=== PATIENT | male | born 1985 | race Caucasian/White ===

== ENCOUNTER 2017-09-26 22:14 | Emergency (ER) | payer SELFPAY ==
[~2017-09-26] VITALS: Ht 154.9 cm; Wt 68.0 kg
== END 2017-09-26 22:41 | disposition home or self-care (01) ==
LOC: ER 22:14
DX: F11.10 Opioid abuse, uncomplicated (principal); F19.10 Other psychoactive substance abuse, uncomplicated; F17.210 Nicotine dependence, cigarettes, uncomplicated
CPT/HCPCS: 99282

== ENCOUNTER 2019-10-24 22:10 | Emergency (ER) | payer SELFPAY ==
[~2019-10-24] VITALS: Ht 154.9 cm; Wt 68.0 kg
--- OUTSIDE RECORDS SUMMARY | 2019-10-24 22:13 | XMS REPORT | Continuity of Care Document ---
Author Author [facility] t Organization [facility] Address [address] [place] [address] Phone Unavailable Care Team Providers Care International Sales Manager Name Role Phone NO, PCP PCP Unavailable SWEET, A LAIRD Attphys Unavailable Payers Payer Name Policy Type Policy Number Effective Date Expiration Date S ource Problems This patient has no known problems. Allergies, Adverse Reactions, Alerts Allergy Name Allergy Type Status Severity Reaction(s) Onset Date Inacti ve Date Treating Clinician Comments Source No Known Allergies DA Active U 2015-10-12 00:00:[address] [facility] Social History Social Habit Start Date Stop Date Quantity Comments Source History of tobacco use Cigarette Smoker Willam Gruber Sex Assigned At Har[facility] balbuena Scientologist Cigarettes smoked current (pack per day) - Reported 00:00:00 2018-03-24 00:00:00 Willam Gruber Alcohol intake 2018-03-24 00:00:00 2018-03-24 00:00:00 Current non-drinker of alcohol (finding) Willam Gruber Smoking Status Start Date Stop Date Source Heavy tobacco smoker 2018-03-24 00:00:00 Willam Gruber Medications Ordered Medication Name Filled Medication Name Start Date Stop Da te Current Medication? Ordering Clinician Indication Dosage Frequency Signature (SIG) Comments Components Source meloxicam (MOBIC) 15 mg tablet 2018-03-24 00:00:00 Yes 15mg Q24H Take 1 tablet (15 mg total) by mouth daily as needed for mild pain or moderate pain for up to 10 doses. Willam Gruber Procedures This patient has no known procedures. Plan of Care Planned Activity Planned Date Details Comments Source Future Scheduled Test 2019-12-13 00:00:00 INFLUENZA VACCINE [code = INFLUENZA VACCINE] Willam Scientologist Encounters Start Date/Time End Date/Time Encounter Type Admission Type Attendi [facility] Facility Care Department Encounter ID Source 2019-05-11 12:21:00 2019-05-11 15:26:00 Departed Emergency Room 1 ANDREA RIVERO [facility] [id number] [facility] 2017-09-26 22:14:00 2017-09-26 22:41:00 Departed Emergency Room [facility] [id number] [facility] Results Test Description Test Time Test Comments Results Result Comments Source URINALYSIS COMPLETE 2019-07-15 18:26:00 Test Item UA COLOR (test code = COLU) DARK YELLOW YELLOW A UA APPEARANCE (test code = APPU) CLEAR CLEAR UA GLUCOSE DIPSTICK (test code = DGLUU) norm mg/dL NEGATIVE UA BILIRUBIN DIPSTICK (test code = BILU) NEGATIVE mg/dL NEGATIVE UA KETONE DIPSTICK (test code = KETU) neg mg/dL NEGATIVE UA SPECIFIC GRAVITY (test code = SGU) 1.025 1.001-1.035 UA BLOOD DIPSTICK (test code = ANGELA) neg Shawn/uL NEGATIVE UA PH DIPSTICK (test code = NELI) 5.0 5.0-8.0 UA PROTEIN DIPSTICK (test code = PROU) neg mg/dL Neg-15 UA UROBILINIOGEN DIPSTICK (test code = URO) norm mg/dL 0.0-0.2 UA NITRITE DIPSTICK (test code = ABBY) NEGATIVE NEGATIVE UA LEUKOCYTE ESTERASE DIPSTICK (test code = LEUU) neg uL NEGA TIVE UA WBC (test code = WBCU) 0-5 per HPF 0-5 UA RBC (test code = RBCU) NONE SEEN per HPF 0-5 UA EPITHELIAL CELLS (test code = EPIU) Few (2-5/hpf) per HPF Few UA BACTERIA (test code = BACU) TRACE per HPF NONE UA HYALINE CAST (test code = HYALU) 2-5 per LPF 0-2 A UA MUCUS (test code = MUCU) MODERATE per LPF NONE-FEW A Urine Source? Clean CatchDRUGS OF ABUSE SCREEN [id number] 18:26:00* Test Item Value Reference Range Interpretation Comments URN COCAINE (test code = COCAURN) NEGATIVE NEGATIVE URN CANNABINOIDS (test code = CANNABURN) NEGATIVE NEGATIVE URN AMPHETAMINE (test code = AMPHETURN) POSITIVE NEGATIVE A URN BARBITURATE (test code = BARBITURN) NEGATIVE NEGATIVE URN BENZODIAZEPINE (test code = BENZOURN) POSITIVE NEGATIVE A URN OPIATES (test code = OPIATURN) POSITIVE NEGATIVE A URN PHENCYCLIDINE (PCP) (test code = PHENCURN) NEGATIVE NEGATIV E URINALYSIS [id number] 18:18:00* Test Item Value Reference Range Interpretation Comments UA COLOR (test code = COLU) DARK YELLOW YELLOW A UA APPEARANCE (test code = APPU) CLEAR CLEAR UA GLUCOSE DIPSTICK (test code = DGLUU) norm mg/dL NEGATIVE UA BILIRUBIN DIPSTICK (test code = BILU) NEGATIVE mg/dL NEGATIVE UA KETONE DIPSTICK (test code = KETU) neg mg/dL NEGATIVE UA SPECIFIC GRAVITY (test code = SGU) 1.025 1.001-1.035 UA BLOOD DIPSTICK (test code = ANGELA) neg Shawn/uL NEGATIVE UA PH DIPSTICK (test code = NELI) 5.0 5.0-8.0 UA PROTEIN DIPSTICK (test code = PROU) neg mg/dL Neg-15 UA UROBILINIOGEN DIPSTICK (test code = URO) norm mg/dL 0.0-0.2 UA NITRITE DIPSTICK (test code = ABBY) NEGATIVE NEGATIVE UA LEUKOCYTE ESTERASE DIPSTICK (test code = LEUU) neg uL NEGA TIVE UA WBC (test code = WBCU) per HPF 0-5 UA RBC (test code = RBCU) per HPF 0-5 UA EPITHELIAL CELLS (test code = EPIU) per HPF Few UA BACTERIA (test code = BACU) per HPF NONE Urine Source? Clean Catch- XR CHEST 1 [id number] 17:44:00 Name: DEZNGUYỄN WHITEHAN [facility] : 1985 Age/S:34 /M [address] [facility] Unit#:[id number] Loc: [place] [address] Phys: Gerber Borges MD Dis Date: PHONE #: [phone] Status: REG ER FAX #: [phone] Exam Date: 07/15/2019 Reason: overdose EXAMS: CPT CODE: [id number] XR CHEST 1 V 93184 HISTORY: Overdose. COMPARISON: October 12, 2015. Location: [facility]. No acute infiltrates, effusion or congestion is noted. Hyperinflation. The cardiac and mediastinal silhouette are within normal limits. IMPRESSION: No acute infiltrates, effusion or congestion. at 1744 Reported and signed by: Omero Sesay M.D. CC: Gerber Borges MD Technologist: Tae Orozco RT(R) Trnscrpt Data: 07/15/2019 (820) t.SDR.TH4 Orig Print D/T: S: 07/15/2019 (0003) PAGE 1 Signed Report - CT HEAD/BRAIN W/O [id number] 17:37:00 Name: NGUYỄN GARCES [facility] : 1985 Age/S: 34 / M [address] [facility] Unit #: [id number] Loc: [place] [address] Phys: Gerber Borges MD Acct: [id number] Dis Date: Status: REG ER PHONE #: [phone] Exam Date: 07/15/2019 1709 FAX #: [phone] Reason: overdose EXAMS: CPT CODE: [id number] CT HEAD/BRAIN W/O CONT 13150 HISTORY: Overdose. COMPARISON: None available. Location: [facility]. CT brain contrast: Automated exposure control. No acute intracranial bleeds or extra- axial collections and there is no acute territorial vascular infarction. The reilly-white matter differentiation is preserved. The sulci, gyri, ventricles and subarachnoid spaces and the basilar cisterns are normal for patient's age. No herniation or hydrocephalus or midline shift is noted. Fourth ventricle remains midline. 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 No obvious bony calvarial defect is noted. IMPRESSION: No acute intracranial bleeds or extra-axial collections. No acute territorial vascular infarction. No herniation or hydrocephalus or midline shift. at 1737 Reported and signed by: Omero Sesay M.D. CC: Gerber Borges MD Technologist:Tae Orozco RT(R) CTDI: DLP: Trnscb Date/Time: 07/15/2019 (1737) t.SDR.TH4 Orig Print D/T: S: 07/15/2019 (6367) PAGE 1 Signed Report BASIC METABOLIC PANEL 2019-07-15 17:27:00* Test Item Value Reference Range Interpretation Comments SODIUM (test code = NA) 143 mmol/L 136-145 N POTASSIUM (test code = K) 4.1 mmol/L 3.5-5.1 N CHLORIDE (test code = CL) 106 mmol/L 101-109 N CARBON DIOXIDE (test code = CO2) 31.6 mmol/L 21-32 N ANION GAP (test code = GAP) 10 mmol/L 10-20 N GLUCOSE (test code = GLU) 97 mg/dL 74-106 N BLOOD UREA NITROGEN (test code = BUN) 19 mg/dL 3-21 N GLOMERULAR FILTRATION RATE (test code = GFR) > 60 mL/min >=60 Estimated GFR by using Modified MDRD formula.Chronic kidney disease is defined as either kidney damageor GFR <60 mL/min/1.73 m2 for >3 months. CREATININE (test code = CREAT) 1.05 mg/dL 0.55-1.3 N BUN/CREATININE RATIO (test code = BUN/CREA) 18.1 10-20 N CALCIUM (test code = CA) 8.9 mg/dL 8.4-10.2 N HEPATIC FUNCTION [id number] 17:27:00* Test Item Value Reference Range Interpretation Comments TOTAL PROTEIN (test code = PROT) 7.2 g/dL 6.5-8.4 N ALBUMIN (test code = ALB) 3.6 g/dL 3.4-4.8 N GLOBULIN (test code = GLOB) 3.6 G/DL 1-10 N ALBUMIN/GLOBULIN RATIO (test code = A/G) 1.00 RATIO 0.75-1.50 N BILIRUBIN TOTAL (test code = BILT) 1.00 mg/dL 0.0-1.0 N BILIRUBIN DIRECT (test code = BILD) 0.20 mg/dL 0.0-0.30 N SGOT/AST (test code = AST) 26 U/L 6-32 N SGPT/ALT (test code = ALT) 28 U/L 12-78 N N ote: Change in REFERENCE RANGE due to new reagent method. ALKALINE PHOSPHATASE TOTAL (test code = ALKP) 64 U/L 38-126 N CREATINE KINASE (CK)2019-07-15 17:27:00* Test Item Value Reference Range Interpretation Comments CREATINE KINASE (CK) (test code = CK) 424 U/L 39-308 H [id number] 17:27:00* Test Item Value Reference Range Interpretation Comments MAGNESIUM (test code = MAG) 2.1 mg/dL 1.6-2.3 N [id number] 17:27:00* Test Item Value Reference Range Interpretation Comments ACETAMINOPHEN (test code = ACET) < 10 mcg/mL 10-30 L A RANGE OF 10-30 mcg/mL IS A THERAPEUTIC RANGE. TOXIC CONCENTRATIONS: >150 mcg/mL AT 4 HOURS AFTER INGESTION >= 50 mcg/mL AT 12 HOURS AFTER INGESTION [id number] 17:27:00* Test Item Value Reference Range Interpretation Comments SALICYLATE (test code = JENNY) 0.5 mg/dL 2.8-20.0 L [id number] 17:27:00* Test Item Value Reference Range Interpretation Comments ALCOHOL (test code = ALC) 3 mg/dL 0.0-3.0 N -- INTERPRETIVE DATA NOTE: POSITIVE SCREENING RESULTS SHOULD BE CONSIDERED PRESUMPTIVE.WHEN COLLECTED FOR MEDICAL PURPOSES ONLY. SPECIMEN WILL NOTBE COLLECTED BY CHAIN OF CUSTODY.IF A CONFIRMATION OF POSITIVE RESULTS IS DESIRED, ACONFIRMATION TEST MUST BE REQUESTED BY THE PHYSICIAN AT ANADDITIONAL CHARGE TO THE PATIENT. BASIC METABOLIC [id number] 17:12:00* Test Item Value Reference Range Interpretation Comments SODIUM (test code = NA) 143 mmol/L 136-145 N POTASSIUM (test code = K) 4.1 mmol/L 3.5-5.1 N CHLORIDE (test code = CL) 106 mmol/L 101-109 N CARBON DIOXIDE (test code = CO2) 31.6 mmol/L 21-32 N ANION GAP (test code = GAP) 10 mmol/L 10-20 N GLUCOSE (test code = GLU) 97 mg/dL 74-106 N BLOOD UREA NITROGEN (test code = BUN) 19 mg/dL 3-21 N GLOMERULAR FILTRATION RATE (test code = GFR) > 60 mL/min >=60 Estimated GFR by using Modified MDRD formula.Chronic kidney disease is defined as either kidney damageor GFR <60 mL/min/1.73 m2 for >3 months. CREATININE (test code = CREAT) 1.05 mg/dL 0.55-1.3 N BUN/CREATININE RATIO (test code = BUN/CREA) 18.1 10-20 N CALCIUM (test code = CA) 8.9 mg/dL 8.4-10.2 N HEPATIC FUNCTION [id number] 17:12:00* Test Item Value Reference Range Interpretation Comments TOTAL PROTEIN (test code = PROT) 7.2 g/dL 6.5-8.4 N ALBUMIN (test code = ALB) 3.6 g/dL 3.4-4.8 N GLOBULIN (test code = GLOB) 3.6 G/DL 1-10 N ALBUMIN/GLOBULIN RATIO (test code = A/G) 1.00 RATIO 0.75-1.50 N BILIRUBIN TOTAL (test code = BILT) 1.00 mg/dL 0.0-1.0 N BILIRUBIN DIRECT (test code = BILD) 0.20 mg/dL 0.0-0.30 N SGOT/AST (test code = AST) 26 U/L 6-32 N SGPT/ALT (test code = ALT) 28 U/L 12-78 N N ote: Change in REFERENCE RANGE due to new reagent method. ALKALINE PHOSPHATASE TOTAL (test code = ALKP) 64 U/L 38-126 N CREATINE KINASE (CK)2019-07-15 17:12:00* Test Item Value Reference Range Interpretation Comments CREATINE KINASE (CK) (test code = CK) 424 U/L 39-308 H [id number] 17:12:00* Test Item Value Reference Range Interpretation Comments MAGNESIUM (test code = MAG) 2.1 mg/dL 1.6-2.3 N [id number] 17:12:00* Test Item Value Reference Range Interpretation Comments ACETAMINOPHEN (test code = ACET) mcg/mL 10-30 [id number] 17:12:00* Test Item Value Reference Range Interpretation Comments SALICYLATE (test code = JENNY) 0.5 mg/dL 2.8-20.0 L [id number] 17:12:00* Test Item Value Reference Range Interpretation Comments ALCOHOL (test code = ALC) 3 mg/dL 0.0-3.0 N -- INTERPRETIVE DATA NOTE: POSITIVE SCREENING RESULTS SHOULD BE CONSIDERED PRESUMPTIVE.WHEN COLLECTED FOR MEDICAL PURPOSES ONLY. SPECIMEN WILL NOTBE COLLECTED BY CHAIN OF CUSTODY.IF A CONFIRMATION OF POSITIVE RESULTS IS DESIRED, ACONFIRMATION TEST MUST BE REQUESTED BY THE PHYSICIAN AT ANADDITIONAL CHARGE TO THE PATIENT. BASIC METABOLIC [id number] 17:05:00* Test Item Value Reference Range Interpretation Comments SODIUM (test code = NA) 143 mmol/L 136-145 N POTASSIUM (test code = K) 4.1 mmol/L 3.5-5.1 N CHLORIDE (test code = CL) 106 mmol/L 101-109 N CARBON DIOXIDE (test code = CO2) 31.6 mmol/L 21-32 N ANION GAP (test code = GAP) 10 mmol/L 10-20 N GLUCOSE (test code = GLU) 97 mg/dL 74-106 N BLOOD UREA NITROGEN (test code = BUN) 19 mg/dL 3-21 N GLOMERULAR FILTRATION RATE (test code = GFR) > 60 mL/min >=60 Estimated GFR by using Modified MDRD formula.Chronic kidney disease is defined as either kidney damageor GFR <60 mL/min/1.73 m2 for >3 months. CREATININE (test code = CREAT) 1.05 mg/dL 0.55-1.3 N BUN/CREATININE RATIO (test code = BUN/CREA) 18.1 10-20 N CALCIUM (test code = CA) 8.9 mg/dL 8.4-10.2 N HEPATIC FUNCTION [id number] 17:05:00* Test Item Value Reference Range Interpretation Comments TOTAL PROTEIN (test code = PROT) gram/dL 6.4-8.2 ALBUMIN (test code = ALB) g/dL 3.4-5.0 GLOBULIN (test code = GLOB) g/dL 2.7-4.2 ALBUMIN/GLOBULIN RATIO (test code = A/G) 0.75-1.50 BILIRUBIN TOTAL (test code = BILT) mg/dL 0.2-1.2 BILIRUBIN DIRECT (test code = BILD) mg/dL 0.0-0.20 SGOT/AST (test code = AST) IUnit/L 15-37 SGPT/ALT (test code = ALT) U/L 10-69 ALKALINE PHOSPHATASE TOTAL (test code = ALKP) IUnit/L 45-117 CREATINE KINASE (CK)2019-07-15 17:05:00* Test Item Value Reference Range Interpretation Comments CREATINE KINASE (CK) (test code = CK) IUnit/L 26-208 [id number] 17:05:00* Test Item Value Reference Range Interpretation Comments MAGNESIUM (test code = MAG) mg/dL 1.8-2.4 [id number] 17:05:00* Test Item Value Reference Range Interpretation Comments ACETAMINOPHEN (test code = ACET) mcg/mL 10-30 [id number] 17:05:00* Test Item Value Reference Range Interpretation Comments SALICYLATE (test code = JENNY) mg/dL 2.8-20.0 [id number] 17:05:00* Test Item Value Reference Range Interpretation Comments ALCOHOL (test code = ALC) mg/dL 0.0-3.0 CBC W/O [id number] 16:54:00* Test Item Value Reference Range Interpretation Comments WHITE BLOOD CELL (test code = WBC) 9.7 K/mm3 4.5-12.5 N RED BLOOD CELL (test code = RBC) 4.50 mill/mm3 4.0-5.8 N HEMOGLOBIN (test code = HGB) 13.6 gram/dL 13.0-17.5 N HEMATOCRIT (test code = HCT) 39.7 % 42.0-52.0 L MEAN CELL VOLUME (test code = MCV) 88.2 fL 80-98 N MEAN CELL HGB (test code = MCH) 30.2 picogram 27.0-33.0 N MEAN CELL HGB CONCETRATION (test code = MCHC) 34.3 gram/dL 33.0-36. 0 N RED CELL DISTRIBUTION WIDTH (test code = RDW) 12.8 % 11.6-16. 2 N RED CELL DISTRIBUTION WIDTH SD (test code = RDW-SD) 41.5 fL 37 .0-51.0 N PLATELET COUNT (test code = PLT) 228 K/mm3 150-450 N MEAN PLATELET VOLUME (test code = MPV) 10.1 fL 6.7-11.0 N WRIST COMPLETE [id number] 13:05:00 [place] [address] Patient Name: NGUYỄN GARCES MR #: [id number] : 1985 Age/Sex: 34/M Req #: [id number] Adm Physician: Ordered by: ANDREA RIVERO MD Report #: [id number] Location: ER Room/Bed: Procedure: [id number] DX/WR IST COMPLETE LEFT Exam Date: 05/11/19 Exam Time: 125 5 REPORT STATUS: Signed Exam: Left wrist History: Pain, evaluate for fracture Comparison: None. Findings: No fracture or malalignment. Joint spaces preserved. Soft tissue swelling. Impression: Soft tissue swelling without fracture. Sig otilio by: Dr. Luciana Caballero M.D. on 05/11/2019 1:16 PM Dictated By: CASI CABALLERO MD 15 Transcribed By: CHING on 05/11/191315 COPY TO: ANDREA RIVERO MD
--- OUTSIDE RECORDS SUMMARY | 2019-10-24 22:13 | XMS REPORT | Clinical Summary ---
Author Author [facility] Organization [facility] Address Unknown Phone Unavailable Care Team Providers Care Weapons Officer Name Role Phone Asked, No Pcp PCP Unavailable Allergies No Known Allergies Medications End Date Status Medication Sig Dispensed Refills Start Date Active meloxicam (MOBIC) 15 mg Take 1 tablet 10 tablet 0 tablet (15 mg total) 8 by mouth daily as needed for mild pain or moderate pain for up to 10 doses. Active Problems Not on file Social History Date Tobacco Use Types Packs/Day Years Used Heavy Tobacco Smoker Cigarettes 0.5 Smokeless Tobacco: Never Used Drinks/Week oz/Week Comments Alcohol Use No Sex Assigned at Date Recorded Not on file Industry Job Start Date Occupation Not on file Not on file Not on file Travel End Travel History Travel Start No recent travel history available. 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
--- NOTE | 2019-10-24 23:23 | Emergency Department Note ---
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 States he did use an enema and got a very small amount but nothing more. Denies nausea vomiting. Denies nausea vomiting. . Historian: Patient Arrival Mode: Car Onset (how long ago): day(s) (5) Location: abd Quality: constipation Radiation: Reports non-radiation Severity: mild Onset quality: gradual Duration (how long): day(s) (5) Timing of current episode: constant Progression: unchanged Chronicity: recurrent Relieving factors: none Exacerbating factors: none Associated symptoms: Reports denies other symptoms Treatments prior to arrival: none Past Medical/Family History Physician Review I have reviewed the patient's past medical and family history. Any updates have been documented here. Past Medical History Recent Fever: No Clinical Suspicion of Infectio: No New/Unexplained Change in Ment: No Past Medical History: None Past Surgical History: Hernia Repair Social History Smoking Cessation: Current some day smoker Counseling Performed: No Alcohol Use: Occasional Any Illegal Drug Use: Yes (HEROIN, BENZODIAZAPINES) TB Exposure/Symptoms: No Physically hurt or threatened: No Other Last Tetanus: UTD Any Pre-Existing Lines (PICC,: No Is patient up to date on immun: No Last Flu: HAS NOT HAD Last Pneumovax: HAS NOT HAD Review of Systems Review of Systems Constitutional: Reports no symptoms EENTM: Reports no symptoms Cardiovascular: Reports no symptoms Respiratory: Reports no symptoms Gastrointestinal: Reports as per HPI Genitourinary: Reports no symptoms Musculoskeletal: Reports no symptoms Integumentary: Reports no symptoms Neurological: Reports no symptoms Psychological: Reports no symptoms Endocrine: Reports no symptoms Hematological/Lymphatic: Reports no symptoms Physical Exam Related Data Allergies: Coded Allergies: No Known Allergies (Unverified , 05/11/19) Triage Vital Signs Vital Signs Date Time Temp Pulse Resp B/P (MAP) Pulse Ox O2 Delivery O2 Flow Rate FiO2 10/24/19 23:15 97.0 75 20 135/62 98 Vital signs reviewed: Yes Physical Exam CONSTITUTIONAL Constitutional: Present well-developed, Present well-nourished HENT HENT: Present normocephalic, Present atraumatic, Present oropharynx clear/moist, Present nose normal HENT L/R: Present left ext ear normal, Present right ext ear normal EYES Eyes: Reports PERRL, Reports conjunctivae normal NECK Neck: Present ROM normal PULMONARY Pulmonary: Present effort normal, Present breath sounds normal CARDIOVASCULAR Cardiovascular: Present regular rhythm, Present heart sounds normal, Present capillary refill normal, Present normal rate GASTROINTESTINAL Abdominal: Present soft, Present nontender, Present bowel sounds normal GENITOURINARY Genitourinary: Present exam deferred SKIN Skin: Present warm, Present dry MUSCULOSKELETAL Musculoskeletal: Present ROM normal NEUROLOGICAL Neurological: Present alert, Present oriented x 3, Present no gross motor or sensory deficits PSYCHOLOGICAL Psychological: Present mood/affect normal, Present judgement normal Results Imaging Imaging results reviewed: Yes Impressions FINDINGS: Nonobstructive bowel gas pattern. No signs of pneumoperitoneum. Large colonic stool burden. Lung bases are clear. No acute osseous abnormality. IMPRESSION: 1. Nonobstructive bowel gas pattern. 2. Large colonic stool burden, consistent with history of constipation. Signed by: Dr. Jessee Dempsey MD on 10/25/2019 12:03 AM Assessment & Plan Medical Decision Making MDM Patient complaint constipation. KUB ordered to eval for fecal impaction. Patient found to have constipation. Patient prescribed lactulose 20 g by mouth every 6 hours until soft BM. Patient also advised to do 2 more enemas. Assessment & Plan Final Impression: (1) Constipation Depart Disposition: HOME, SELF-CARE Last Vital Signs Date Time Temp Pulse Resp B/P (MAP) Pulse Ox O2 Delivery O2 Flow Rate FiO2 10/24/19 23:15 97.0 75 20 135/62 98 COMPA SALDAÑA MD Oct 24, 2019 23:23
--- NOTE | 2019-10-25 00:06 | Diagnostic Imaging Report ---
EXAM: Abdomen 1 Views INDICATION: ^constipation ^[id number] ^2340 ^Y COMPARISON: None FINDINGS: Nonobstructive bowel gas pattern. No signs of pneumoperitoneum. Large colonic stool burden. Lung bases are clear. No acute osseous abnormality. IMPRESSION: 1. Nonobstructive bowel gas pattern. 2. Large colonic stool burden, consistent with history of constipation. Signed by: Dr. Jessee Dempsey MD on 10/25/2019 12:03 AM
== END 2019-10-25 01:07 | disposition home or self-care (01) ==
LOC: ER 22:10
DX: K59.00 Constipation, unspecified (principal); F17.210 Nicotine dependence, cigarettes, uncomplicated
CPT/HCPCS: 74018; 99283